=== PATIENT | female | born 1980 | race Caucasian/White ===

== ENCOUNTER 2020-10-06 10:28 | Outpatient (CLI) | payer OTHER, SELFPAY ==
--- NOTE | 2020-10-06 10:42 | US_ITS ---
WS: [id number] TRANSABDOMINAL PELVIC ULTRASOUND HISTORY: CARCINOMA, OVARY FAMILY HX COMPARISON: None available. Uterus: 8.2 cm x 5.3 cm x 3.8 cm. Slightly retroflexed uterus. No mass identified. Endometrium: 0.8 cm. Poorly visualized but no abnormality appreciated. Right ovary: 3.7 cm x 2.0 cm x 1.8 cm; no solid or cystic mass. Normal vascularity. Left ovary: 3.3 cm x 2.1 cm x 1.5 cm; no solid or cystic mass. Normal vascularity. No free fluid in the cul-de-sac. US/US pelvic complete* [id number] IMPRESSION: 1. No abnormality identified within the uterus or adnexa. This study is limite d without transvaginal imaging. 2. Patient has declined transvaginal imaging at this time.
--- NOTE | 2020-10-06 11:57 | MM_ITS ---
WS: [id number] BILATERAL SCREENING DIGITAL MAMMOGRAM WITH CAD HISTORY: SCREENING COMPARISON: None available. Bilateral CC and MLO views submitted. Computer aided detection analyzed. Breast composition: There are scattered areas of fibroglandular density. No suspicious masses, microc alcifications or architectural distortion. MM/[id number] IMPRESSION: BI-RADS: 1-Negative FOLLOW UP: 1 Year Follow-up
== END 2020-10-06 10:29 | disposition home or self-care (01) ==
PROVIDERS: PCP Family Medicine; Visit Provider Family Medicine
DX: Z12.31 Encounter for screening mammogram for malignant neoplasm of breast (principal); Z80.41 Family history of malignant neoplasm of ovary
CPT/HCPCS: 76856; 77067

== ENCOUNTER → 2021-08-28 11:23 | Outpatient (BNVA) | payer OTHER, SELFPAY | PROVIDERS: PCP Family Medicine; Visit Provider Family Medicine | DX: Z01.419 Encounter for gynecological examination (general) (routine) without abnormal findings (principal) | CPT/HCPCS: 80048; 80061 ==

== ENCOUNTER → 2022-08-07 08:44 | Outpatient (BNVA) | payer OTHER, SELFPAY | PROVIDERS: PCP Family Medicine; Visit Provider Family Medicine | DX: Z00.00 Encounter for general adult medical examination without abnormal findings (principal); F32.A Depression, unspecified | CPT/HCPCS: 80053; 80061; 84443 ==

== ENCOUNTER 2022-08-10 14:59 | Outpatient (CLI) | payer OTHER, SELFPAY ==
--- NOTE | 2022-08-10 15:07 | MM_ITS ---
WS: [id number] BILATERAL 3D TOMOSYNTHESIS DIGITAL SCREENING MAMMOGRAPHY WITH CAD CLINICAL INFORMATION: SCREENING HISTORY: Screening mammogram. No current complaints. COMPARISON: October 06, 2020 TECHNIQUE: Bilateral CC and MLO views. FINDINGS: The breasts are composed of heterogeneous fibroglandular density tissue, which can limit the detectio n of small underlying mass lesions. No suspicious mass, asymmetry, calcifications, or architectural d istortion. No evidence of malignancy. MM/[id number] IMPRESSION: BI-RADS: 1-Negative FOLLOW UP: 1 Year Follow-up Recommend return to annual screening mammography.
== END 2022-08-10 15:00 | disposition home or self-care (01) ==
PROVIDERS: PCP Family Medicine; Visit Provider Family Medicine
DX: Z12.31 Encounter for screening mammogram for malignant neoplasm of breast (principal); Z01.419 Encounter for gynecological examination (general) (routine) without abnormal findings
CPT/HCPCS: 77063; 77067; 87624

== ENCOUNTER 2022-08-23 15:28 | Outpatient (CLI) | payer OTHER, SELFPAY ==
--- NOTE | 2022-08-23 15:45 | US_ITS ---
WS: [id number] US pelv w/transvag [id number] HISTORY: right ovarian pain COMPARISON: 10/06/2020 Uterus: 8.1 cm x 5.6 cm x 4.7 cm. Normal size retroverted uterus. No fibroid or mass identified. No mass identified. Endometrium: 2.0 cm. Abnormally enlarged endometrium. There is heterogeneity especially toward the mi d and fundal portion of the endometrium. Mild lobulation and thickening and variable echogenicity. Di ffuse thickening of the junctional zone. Right ovary: 2.9 cm x 1.5 cm x 1.7 cm. Normal size and vascularity, no cystic or solid masses. Left ovary: 2.9 cm x 2.0 cm x 2.2 cm. Normal size and vascularity, no cystic or solid masses. No free fluid in the cul-de-sac. US/US pelv w/transvag [id number] IMPRESSION: 1. Diffusely thickened, heterogeneous endometrium. Loss of the junctional zone with variable echogenicity. Differential includes diffuse endometrial hyperpla tami. Polyp is not excluded due to the marked thickening. Visualization with bio psy should be obtained to exclude malignancy. 2. No ovarian mass.
== END 2022-08-23 15:29 | disposition home or self-care (01) ==
LOC: RAD 15:31
PROVIDERS: PCP Family Medicine; Visit Provider Family Medicine
DX: R10.2 Pelvic and perineal pain (principal); R93.89 Abnormal findings on diagnostic imaging of other specified body structures
CPT/HCPCS: 76830; 76856

== ENCOUNTER 2022-10-05 11:23 | Outpatient (CLI) | payer OTHER, SELFPAY ==
--- NOTE | 2022-10-05 11:30 | US_ITS ---
WS: [id number] US pelvic complete* [id number] HISTORY: Endometrial thickening COMPARISON: 08/23/2022 Uterus: 8.3 cm x 5.7 cm x 5.1 cm. Normal size retroverted uterus. No fibroid or mass identified. Endometrium: 1.5 cm. Moderate improvement in the endometrial thickening since the prior study. The en dometrial thickness now is top normal size with only mild persistent heterogeneity. No increased vasc ularity and no mass identified on today's exam. Junctional zone is better visualized. Right ovary: 2.5 cm x 1.5 cm x 2.4 cm. Normal size and vascularity, no cystic or solid masses. Left ovary: 4.1 cm x 3.3 cm x 2.0 cm. Normal size and vascularity, no cystic or solid masses. LEFT fo llicle. No free fluid in the cul-de-sac. US/US pelvic complete* [id number] IMPRESSION: 1. Endometrium is top normal size with mild persistent heterogeneity. Overall there has been a moderate improvement in the appearance of the endometrium. 2. No endometrial mass identified.
== END 2022-10-05 11:24 | disposition home or self-care (01) ==
LOC: RAD 11:26
PROVIDERS: PCP Family Medicine; Visit Provider Family Medicine
DX: R93.89 Abnormal findings on diagnostic imaging of other specified body structures (principal)
CPT/HCPCS: 76856